=== PATIENT | male | born 1955 | race Caucasian/White ===

== ENCOUNTER 2018-05-17 09:01 | Emergency (ER) | payer OTHER, BC ==
[~2018-05-17] VITALS: Ht 177.8 cm; Wt 95.2 kg
[~2018-05-17 09:01] MED LIST: CEFA250SU PO; HYDMOR2 PO; Keflex500 MG PO; Vibramycin100 MG PO; WARF2.5 PO; WARF3 PO
[2018-05-17] MEDS ORDERED: NORT25 PO (09:52)
[2018-05-17] MEDS ORDERED: XARELTO10 MG PO (09:53)
[2018-05-17] MEDS ORDERED: MELO7.5 PO (09:53)
[2018-05-17] MEDS ORDERED: CYCL10 PO (09:54)
== END 2018-05-17 11:20 | disposition home or self-care (01) ==
LOC: ER 09:01
DX: S61.317A Laceration without foreign body of left little finger with damage to nail, initial encounter (principal); Z79.899 Other long term (current) drug therapy; I10 Essential (primary) hypertension; F17.200 Nicotine dependence, unspecified, uncomplicated; W22.8XXA Striking against or struck by other objects, initial encounter
CPT/HCPCS: 73130; 99283-25

== ENCOUNTER 2018-05-27 10:37 | Day surgery (SDC) | payer BC ==
[~2018-05-27 10:37] MED LIST changes: +CYCL10 PO; +MELO7.5 PO; +NORT25 PO; +XARELTO10 MG PO
== END 2018-05-27 23:02 | disposition home or self-care (01) ==
LOC: RAD 10:37 → MRI 12:00 → RAD 23:02
DX: M75.121 Complete rotator cuff tear or rupture of right shoulder, not specified as traumatic (principal); M19.011 Primary osteoarthritis, right shoulder
CPT/HCPCS: 20610; 73222; 77002; A9577; Q9967

== ENCOUNTER 2018-07-23 09:05 | Emergency (ER) | payer BC ==
[~2018-07-23] VITALS: Ht 177.8 cm; Wt 95.2 kg
[2018-07-23 09:53] LABS: BASOPHILS ABSOLUTE AUTO 0.05 K/mm3 (0.00-0.23); BASOPHILS PERCENT AUTO 1 % (0-2); EOSINOPHILS PERCENT AUTO 2 % (0-6); Hematocrit 45.6 % (37.0-53.0); Hemoglobin 14.8 g/dL (13.5-17.5); IMMATURE GRAN ABSOLUTE AUTO 0.01 K/mm3 (0.00-0.10); IMMATURE GRAN PERCENT AUTO 0 % (0-1); LYMPHOCYTES ABSOLUTE AUTO 1.18 K/mm3 (0.84-5.20); LYMPHOCYTES PERCENT AUTO 20 % (21-46); MONOCYTES ABSOLUTE AUTO 0.53 K/mm3 (0.16-1.47); MONOCYTES PERCENT AUTO 9 % (4-13); Mean Corpuscular HGB 31.6 pg (26.0-34.0); Mean Corpuscular HGB Conc 32.5 g/dL (31.5-36.5); Mean Corpuscular Volume 97 fL (80-100); Mean Platelet Volume 9.2 fL (9.1-12.4); NEUTROPHILS PERCENT AUTO 69 % (41-73); Platelet Count 256 K/mm3 (150-400); RDW Coefficient Variation 12.8 % (11.7-14.2); RDW Standard Deviation 45.8 fL (35.1-46.3); Red Blood Cell Count 4.68 M/mm3 (4.30-5.90); White Blood Cell Count 5.97 K/mm3 (4.00-11.30)
[2018-07-23 10:15] LABS: Alanine Aminotransfer (ALT/SGP 32 U/L (12-78); Albumin, Blood 3.8 g/dL (3.4-5.0); Albumin/Globulin Ratio 1.3 (0.8-1.8); Alk Phos 74 U/L (50-136); Anion Gap 5 mmol/L (6-16); Aspartate Aminotrans (AST/SGOT 17 U/L (12-37); Bilirubin, Total 0.8 mg/dL (0.1-1.0); Blood Urea Nitrogen 13 mg/dL (8-24); Bun/Creatinine Ratio 17.1 (12.0-20.0); CO2, Blood 25 mmol/L (21-32); Chloride, Blood 112 mmol/L (98-108); Creatinine, Blood 0.76 mg/dL (0.60-1.20); Globulin, Blood 2.9 g/dL (2.2-4.0); Glomerular Filtration Rate >60 (60-); Glucose, Blood 100 mg/dL (70-99); Potassium, Blood 3.7 mmol/L (3.5-5.5); Sodium, Blood 142 mmol/L (136-145); Total Protein, Blood 6.7 g/dL (6.4-8.2); Troponin I 0.025 ng/mL (0.000-0.040)
[2018-07-23] MEDS ORDERED: Lasix20 MG PO (14:17)
== END 2018-07-23 15:27 | disposition home or self-care (01) ==
LOC: ER 09:05
PROVIDERS: Physician Assistant
DX: I11.0 Hypertensive heart disease with heart failure (principal); I50.9 Heart failure, unspecified; Z79.899 Other long term (current) drug therapy; F17.200 Nicotine dependence, unspecified, uncomplicated
CPT/HCPCS: 36415; 71260; 80053; 83880; 84484; 85025; 93005; 93010; 99284-25; Q9967

== ENCOUNTER 2018-08-06 14:19 | Emergency (ER) | payer BC ==
[~2018-08-06] VITALS: Ht 177.8 cm; Wt 95.2 kg
[~2018-08-06 14:19] MED LIST changes: +Lasix20 MG PO
[2018-08-06 15:29] LABS: BASOPHILS ABSOLUTE AUTO 0.06 K/mm3 (0.00-0.23); BASOPHILS PERCENT AUTO 1 % (0-2); EOSINOPHILS ABSOLUTE AUTO 0.11 K/mm3 (0.00-0.68); EOSINOPHILS PERCENT AUTO 2 % (0-6); Hematocrit 44.4 % (37.0-53.0); Hemoglobin 14.3 g/dL (13.5-17.5); IMMATURE GRAN ABSOLUTE AUTO 0.03 K/mm3 (0.00-0.10); IMMATURE GRAN PERCENT AUTO 1 % (0-1); LYMPHOCYTES ABSOLUTE AUTO 1.26 K/mm3 (0.84-5.20); LYMPHOCYTES PERCENT AUTO 20 % (21-46); MONOCYTES ABSOLUTE AUTO 0.38 K/mm3 (0.16-1.47); MONOCYTES PERCENT AUTO 6 % (4-13); Mean Corpuscular HGB 31.5 pg (26.0-34.0); Mean Corpuscular HGB Conc 32.2 g/dL (31.5-36.5); Mean Corpuscular Volume 98 fL (80-100); Mean Platelet Volume 9.3 fL (9.1-12.4); NEUTROPHILS ABSOLUTE AUTO 4.52 K/mm3 (1.96-9.15); NEUTROPHILS PERCENT AUTO 71 % (41-73); Platelet Count 265 K/mm3 (150-400); RDW Coefficient Variation 12.7 % (11.7-14.2); RDW Standard Deviation 45.6 fL (35.1-46.3); Red Blood Cell Count 4.54 M/mm3 (4.30-5.90); White Blood Cell Count 6.36 K/mm3 (4.00-11.30)
[2018-08-06 15:46] LABS: Alanine Aminotransfer (ALT/SGP 37 U/L (12-78); Albumin, Blood 3.5 g/dL (3.4-5.0); Albumin/Globulin Ratio 1.1 (0.8-1.8); Alk Phos 76 U/L (50-136); Anion Gap 5 mmol/L (6-16); Aspartate Aminotrans (AST/SGOT 16 U/L (12-37); Bilirubin, Total 0.5 mg/dL (0.1-1.0); Blood Urea Nitrogen 19 mg/dL (8-24); Bun/Creatinine Ratio 21.9 (12.0-20.0); CO2, Blood 24 mmol/L (21-32); Calcium, Blood 8.7 mg/dL (8.5-10.1); Chloride, Blood 112 mmol/L (98-108); Creatinine, Blood 0.87 mg/dL (0.60-1.20); Globulin, Blood 3.1 g/dL (2.2-4.0); Glomerular Filtration Rate >60 (60-); Glucose, Blood 129 mg/dL (70-99); Sodium, Blood 141 mmol/L (136-145); Total Protein, Blood 6.6 g/dL (6.4-8.2); Troponin I 0.024 ng/mL (0.000-0.040)
[2018-08-06] MEDS ORDERED: Toprol Xl25 MG PO (17:01)
== END 2018-08-06 17:18 | disposition home or self-care (01) ==
LOC: ER 14:19
PROVIDERS: Physician Assistant
DX: I11.0 Hypertensive heart disease with heart failure (principal); I50.9 Heart failure, unspecified; Z79.899 Other long term (current) drug therapy; F17.200 Nicotine dependence, unspecified, uncomplicated
CPT/HCPCS: 36415; 71046; 80053; 83880; 84484; 85025; 93005; 93010; 96374; 99284-25; J1940

== ENCOUNTER 2018-08-22 09:28 | Day surgery (SDC) | payer BC ==
[~2018-08-22] VITALS: Ht 175.3 cm; Wt 94.0 kg
[~2018-08-22 09:28] MED LIST changes: +ACET325 PO; +FOLGARD TABLET1 EACH PO; +Toprol Xl25 MG PO
[2018-08-22] MEDS ORDERED: METO25ER PO (10:00)
[2018-08-22] MEDS ORDERED: Vitamin D2000 UNIT PO (10:02)
--- NOTE | 2018-08-22 10:57 | NUR ---
20 G ANGIOJET IV STARTED IN RIGHT AC USING STERILE TECHNIQUE; IV SECURED WITH TEGADERM DRESSING. IV WAS FLUSHED WITH 10 CC NS.
--- NOTE | 2018-08-22 12:45 | NUR ---
PT ARRIVED BACK TO RECOVERY ROOM IN RECLINER WITH RIGHT RADIAL TR BAND IN PLACE WITH WRIST BOARD; ALSO, WRIST BOARD AND DRESSING OVER RIGHT AC VENOUS SITE. BOTH SITES SOFT NON-TENDER WITH NO HEMATOMA NO PULSATILE BLEEDING RIGHT RADIAL SITE. PT DENIES PAIN. PT EATING LUNCH WITH CALL LIGHT IN REACH AND IN THE ROOM.
--- NOTE | 2018-08-22 12:51 | NUR ---
DR SANDRA IN ROOM TO SEE PT AND .
[2018-08-22] MEDS ORDERED: Lisinopril2.5 MG PO (13:21)
--- NOTE | 2018-08-22 14:17 | NUR ---
DISCHARGE INSTRUCTIONS REVIEWED ALL QUESTIONS ANSWERED.
--- NOTE | 2018-08-22 14:30 | NUR ---
11 CC OF AIR REMOVED OVER 20 MIN OUT OF NOW DEFLATED RIGHT TR BAND. NO HEMATOMA, NO PULSATILE BLEEDING.
--- NOTE | 2018-08-22 14:43 | NUR ---
RIGHT AC VENOUS SITE SOFT NON-TENDER WITH NO HEMATOMA, NO BLEEDING AND INTACT DRESSING STILL.
--- NOTE | 2018-08-22 14:43 | NUR ---
NO CHANGES TO DEFLATED RIGHT TR BAND SITE.
== END 2018-08-22 15:15 | disposition home or self-care (01) ==
LOC: MHTC 09:28
DX: I25.10 Atherosclerotic heart disease of native coronary artery without angina pectoris (principal); I27.22 Pulmonary hypertension due to left heart disease; I50.40 Unspecified combined systolic (congestive) and diastolic (congestive) heart failure; I42.0 Dilated cardiomyopathy; M19.90 Unspecified osteoarthritis, unspecified site; I08.1 Rheumatic disorders of both mitral and tricuspid valves; I45.10 Unspecified right bundle-branch block; I87.2 Venous insufficiency (chronic) (peripheral); Z87.891 Personal history of nicotine dependence; Z79.899 Other long term (current) drug therapy
CPT/HCPCS: 93460; 99152; 99153; C1769; C1894; J1644; J2250; J3010; J7030; Q9967

== ENCOUNTER 2019-03-17 08:59 | Day surgery (SDC) | payer BC ==
[~2019-03-17] VITALS: Ht 177.8 cm; Wt 85.9 kg
[~2019-03-17 08:59] MED LIST changes: +Lisinopril2.5 MG PO; +METO25ER PO; +Vitamin D2000 UNIT PO
[2019-03-17] MEDS ORDERED: Lisinopril2.5 MG PO (09:54)
[2019-03-17] MEDS ORDERED: FURO40 PO (09:54)
[2019-03-17] MEDS ORDERED: Nortriptyline H50 MG PO (09:55)
[2019-03-17] MEDS ORDERED: METO25 (09:55)
[2019-03-17] MEDS ORDERED: XARELTO20 MG PO (09:55)
--- NOTE | 2019-03-17 10:16 | NUR ---
03/17/19 RADAMES DEUTSCH History, Chart, Medications and Allergies reviewed before start of procedure.3-LEAD EKG REVIEWED WITH PHYSICIAN PRIOR TO START OF PROCEDURE.O2 VIA N/C INTACT THROUGHOUT SEDATION/PROCEDURE. MONITOR INTACT WITH CONTINUOUS PULSE OXIMETRY AND INTERMITTENT BP.PATIENT DETERMINED TO BE ASA APPROPRIATE FOR PROPOFOL SEDATION PRIOR TO START OF PROCEDURE BY .
--- NOTE | 2019-03-17 10:49 | NUR ---
NO PAIN INDICATED.
--- NOTE | 2019-03-17 11:02 | NUR ---
Discharge instructions reviewed with patient. Patient verbalizes understanding. Copy given to patient to take home. Patient States Post-Procedure ride home has been arranged WITH . GAIT STEADY AND VITAL SIGNS STABLE, TOLERATING FLUIDS WELL.
== END 2019-03-17 11:10 | disposition home or self-care (01) ==
LOC: ORSCMMR 08:59 → ORD 10:00 → ORSCMMR 10:00
PROVIDERS: Internal Medicine Gastroenterology
PROC: 0DBM8ZX Excision of Descending Colon, Via Natural or Artificial Opening Endoscopic, Diagnostic (ICD-10-PCS; principal; 2019-03-17 10:00)
PROC: 0DBN8ZX Excision of Sigmoid Colon, Via Natural or Artificial Opening Endoscopic, Diagnostic (ICD-10-PCS; principal; 2019-03-17 10:00)
DX: R19.5 Other fecal abnormalities (principal); D12.4 Benign neoplasm of descending colon; D12.5 Benign neoplasm of sigmoid colon; K57.30 Diverticulosis of large intestine without perforation or abscess without bleeding; Z86.718 Personal history of other venous thrombosis and embolism; I50.9 Heart failure, unspecified; F17.210 Nicotine dependence, cigarettes, uncomplicated; Z79.01 Long term (current) use of anticoagulants; Z79.899 Other long term (current) drug therapy
CPT/HCPCS: 88305; J2250; J3010; J7120

== ENCOUNTER 2019-05-06 21:30 | Observation (INO) | payer BC ==
[~2019-05-06] VITALS: Ht 177.8 cm; Wt 88.5 kg
[~2019-05-06 21:30] MED LIST changes: +FURO40 PO; +METO25; +Nortriptyline H50 MG PO; +XARELTO20 MG PO
[2019-05-06 22:10] LABS: BASOPHILS ABSOLUTE AUTO 0.06 K/mm3 (0.00-0.23); BASOPHILS PERCENT AUTO 1 % (0-2); EOSINOPHILS ABSOLUTE AUTO 0.05 K/mm3 (0.00-0.68); EOSINOPHILS PERCENT AUTO 1 % (0-6); Hematocrit 45.7 % (37.0-53.0); Hemoglobin 15.3 g/dL (13.5-17.5); IMMATURE GRAN ABSOLUTE AUTO 0.07 K/mm3 (0.00-0.10); IMMATURE GRAN PERCENT AUTO 1 % (0-1); LYMPHOCYTES ABSOLUTE AUTO 0.99 K/mm3 (0.84-5.20); LYMPHOCYTES PERCENT AUTO 11 % (21-46); MONOCYTES ABSOLUTE AUTO 0.71 K/mm3 (0.16-1.47); MONOCYTES PERCENT AUTO 8 % (4-13); Mean Corpuscular HGB Conc 33.5 g/dL (31.5-36.5); Mean Corpuscular Volume 99 fL (80-100); Mean Platelet Volume 8.5 fL (9.1-12.4); NEUTROPHILS ABSOLUTE AUTO 7.36 K/mm3 (1.96-9.15); NEUTROPHILS PERCENT AUTO 80 % (41-73); Platelet Count 334 K/mm3 (150-400); RDW Coefficient Variation 13.1 % (11.7-14.2); RDW Standard Deviation 47.7 fL (35.1-46.3); Red Blood Cell Count 4.63 M/mm3 (4.30-5.90); White Blood Cell Count 9.24 K/mm3 (4.00-11.30)
[2019-05-06 22:34] LABS: Alanine Aminotransfer (ALT/SGP 36 U/L (12-78); Albumin, Blood 4.4 g/dL (3.4-5.0); Albumin/Globulin Ratio 1.5 (0.8-1.8); Alk Phos 77 U/L (50-136); Anion Gap 8 mmol/L (6-16); Aspartate Aminotrans (AST/SGOT 15 U/L (12-37); Bilirubin, Total 0.8 mg/dL (0.1-1.0); Blood Urea Nitrogen 22 mg/dL (8-24); Bun/Creatinine Ratio 13.1 (12.0-20.0); CO2, Blood 25 mmol/L (21-32); Calcium, Blood 9.5 mg/dL (8.5-10.1); Chloride, Blood 108 mmol/L (98-108); Creatinine, Blood 1.68 mg/dL (0.60-1.20); Glomerular Filtration Rate 44 (60-); Glucose, Blood 96 mg/dL (70-99); Potassium, Blood 4.1 mmol/L (3.5-5.5); Sodium, Blood 141 mmol/L (136-145); Total Protein, Blood 7.4 g/dL (6.4-8.2)
[2019-05-06] MEDS ORDERED: Lasix20 MG PO (23:02)
[2019-05-07 00:38] LABS: Troponin I <0.015 ng/mL (0.000-0.040)
[2019-05-07 06:36] LABS: Anion Gap 6 mmol/L (6-16); Blood Urea Nitrogen 23 mg/dL (8-24); Bun/Creatinine Ratio 20.2 (12.0-20.0); CO2, Blood 25 mmol/L (21-32); Calcium, Blood 8.9 mg/dL (8.5-10.1); Chloride, Blood 109 mmol/L (98-108); Creatinine, Blood 1.14 mg/dL (0.60-1.20); Glomerular Filtration Rate >60 (60-); Glucose, Blood 95 mg/dL (70-99); Potassium, Blood 3.7 mmol/L (3.5-5.5); Sodium, Blood 140 mmol/L (136-145)
[2019-05-07] MEDS ORDERED: PRINIVIL10 MG PO (11:53)
[2019-05-07] MEDS ORDERED: XARELTO15 MG PO (11:54)
--- NOTE | 2019-05-07 15:13 | NUR ---
echocardiogram completed
== END 2019-05-07 17:00 | disposition other institution (70) ==
LOC: ER 21:30 → ERHOLD 21:31
PROVIDERS: Emergency Medicine; ADMIT Internal Medicine
DX: E86.0 Dehydration (principal); I95.1 Orthostatic hypotension; I87.2 Venous insufficiency (chronic) (peripheral); I11.0 Hypertensive heart disease with heart failure; I50.22 Chronic systolic (congestive) heart failure; I45.10 Unspecified right bundle-branch block; N17.9 Acute kidney failure, unspecified; Z72.89 Other problems related to lifestyle; Z79.01 Long term (current) use of anticoagulants; Z79.899 Other long term (current) drug therapy; Z86.718 Personal history of other venous thrombosis and embolism; Z87.891 Personal history of nicotine dependence
CPT/HCPCS: 36415; 71046; 80048; 80053; 84484; 85025; 93005; 93010; 93308; 93321; 96360; 96361; 99285-25; G0378; J7030

== ENCOUNTER 2019-12-23 20:46 | Emergency (ER) | payer BC ==
[~2019-12-23] VITALS: Ht 172.7 cm; Wt 88.5 kg
[~2019-12-23 20:46] MED LIST changes: +PRINIVIL10 MG PO; +XARELTO15 MG PO
== END 2019-12-23 23:38 | disposition home or self-care (01) ==
LOC: ER 20:46
DX: S40.011A Contusion of right shoulder, initial encounter (principal); S40.021A Contusion of right upper arm, initial encounter; I10 Essential (primary) hypertension; F17.210 Nicotine dependence, cigarettes, uncomplicated; Z79.01 Long term (current) use of anticoagulants; Z86.718 Personal history of other venous thrombosis and embolism; Z79.899 Other long term (current) drug therapy; W01.0XXA Fall on same level from slipping, tripping and stumbling without subsequent striking against object, initial encounter
CPT/HCPCS: 73030; 99283-25

== ENCOUNTER → 2020-01-27 | Outpatient (CLI) | payer BC | END | disposition home or self-care (01) | LOC: LAB 18:00 → LAB SHORT 18:00 | DX: L02.91 Cutaneous abscess, unspecified (principal) | CPT/HCPCS: 87070; 87075; 87077; 87186; 87205 ==

== ENCOUNTER 2021-08-29 11:26 | Inpatient (IN) | payer MEDICARE ==
[~2021-08-29] VITALS: Ht 180.3 cm; Wt 90.7 kg
[2021-08-29 12:28] LABS: BASOPHILS ABSOLUTE AUTO 0.04 K/mm3 (0.00-0.23); BASOPHILS PERCENT AUTO 0 % (0-2); EOSINOPHILS ABSOLUTE AUTO 0.01 K/mm3 (0.00-0.68); EOSINOPHILS PERCENT AUTO 0 % (0-6); Hematocrit 46.2 % (37.0-53.0); Hemoglobin 15.7 g/dL (13.5-17.5); IMMATURE GRAN ABSOLUTE AUTO 0.17 K/mm3 (0.00-0.10); IMMATURE GRAN PERCENT AUTO 1 % (0-1); LYMPHOCYTES ABSOLUTE AUTO 1.11 K/mm3 (0.84-5.20); LYMPHOCYTES PERCENT AUTO 6 % (21-46); MONOCYTES ABSOLUTE AUTO 1.57 K/mm3 (0.16-1.47); MONOCYTES PERCENT AUTO 9 % (4-13); Mean Corpuscular HGB 32.4 pg (26.0-34.0); Mean Corpuscular Volume 95 fL (80-100); Mean Platelet Volume 9.1 fL (9.1-12.4); NEUTROPHILS ABSOLUTE AUTO 15.63 K/mm3 (1.96-9.15); NEUTROPHILS PERCENT AUTO 84 % (41-73); Platelet Count 305 K/mm3 (150-400); RDW Coefficient Variation 12.9 % (11.7-14.2); RDW Standard Deviation 45.8 fL (35.1-46.3); Red Blood Cell Count 4.85 M/mm3 (4.30-5.90); White Blood Cell Count 18.53 K/mm3 (4.00-11.30)
[2021-08-29 12:48] LABS: Albumin, Blood 3.3 g/dL (3.4-5.0); Albumin/Globulin Ratio 0.8 (0.8-1.8); Bilirubin, Total 1.4 mg/dL (0.1-1.0); Bun/Creatinine Ratio 13.8 (12.0-20.0); Calcium, Blood 9.9 mg/dL (8.5-10.1); Creatinine, Blood 0.8 mg/dL (0.60-1.20); Globulin, Blood 4.4 g/dL (2.2-4.0); Potassium, Blood 3.5 mmol/L (3.5-5.5); Total Protein, Blood 7.7 g/dL (6.4-8.2)
[2021-08-29] MEDS ORDERED: METOPROLOL SUCC25 MG PO (15:05)
[2021-08-29 16:04] LABS: Source, Urine Clean Catch
[2021-08-29 16:16] LABS: Appearance, Urine Clear (Clear); Bilirubin, Urine Neg (Neg); Blood, Urine 2+ (Neg); Color, Urine Amber (P-Yellow); Glucose Qualitative, Urine Neg (Neg); Ketones, Urine Neg (Neg); Leukocyte Esterase, Urine Neg (Neg); Nitrite, Urine Neg (Neg); Protein, Urine 2+ (Neg); Urobilinogen, Urine 1+ (Normal); pH, Urine 6.5 (5.0-8.0)
[2021-08-29 16:40] LABS: Bacteria Few /hpf; Hyaline Casts 0-2 /lpf (0-2); Squamous Epithelial Cells Rare /hpf (Few); White Blood Cells, Urine 0-2 /hpf (0-5)
--- NOTE | 2021-08-29 21:50 | NUR ---
PATIENT TO THE FLOOR VIA PHYLLIS, AOX4, VSS, JIMMY TO RUQ, PATENT DRAINING SEROSANGUINOUS FLUID. EMPTIED OUT 90MLS. REINFORCED DRAIN WITH GAUZE. PICCO ON ABD WITH SLIGHT SHADOWING. CALL LIGHT IN REACH ORIENTED TO CALL LIGHT WILL CONTINUE TO MONITOR.
--- NOTE | 2021-08-30 02:06 | NUR ---
AGREE WITH EDUCATION SITE MANAGER SHIFT ASSESSMENT DOCUMENTATION.
--- NOTE | 2021-08-30 04:19 | NUR ---
SHIFT SUMMARY PT NEW POST OP ADMIT THIS SHIFT. COMES TO THE FLOOR FROM ICU RECOVERY AT 2100. POST OPEN CALLIE, PICCO DRAIN W/ SCANT SHADOWING ON THE LUQ, JIMMY DRAIN ON LUQ, DRAINING SEROSANGUINOUS FLUID APROXIMATELY 110MLS OUTPUT THIS SHIFT. PT COMPLAINS OF 9/10 PAIN AND MEDICATED PER EMAR. FLUIDS RUNNING AT 125/HR IN R AC. ZOSYN RUNNING AT 3.7/HR PER EMAR IN L FOREARM. PT ATTEMPTED TO VOID UNSUCCESSFUL, BLADDER SCAN OF 197MLS @ 0340. UPON AMBULATION PT COMPLAIN OF SOB, NECK AND ABD PAIN. PT DIAPHORETIC AND PALE, BACK TO BED AND VITALS ASSESSED. NOTIFIED SURGEON TELE ORDERED AND HOSPITALIST CONSULTED. VSS, WILL CONTINUE TO MONTIOR FOR CHANGES.
[2021-08-30 04:39] LABS: BASOPHILS ABSOLUTE AUTO 0.06 K/mm3 (0.00-0.23); BASOPHILS PERCENT AUTO 0 % (0-2); EOSINOPHILS ABSOLUTE AUTO 0.05 K/mm3 (0.00-0.68); EOSINOPHILS PERCENT AUTO 0 % (0-6); Hematocrit 32.6 % (37.0-53.0); Hemoglobin 10.9 g/dL (13.5-17.5); IMMATURE GRAN ABSOLUTE AUTO 0.47 K/mm3 (0.00-0.10); IMMATURE GRAN PERCENT AUTO 3 % (0-1); LYMPHOCYTES ABSOLUTE AUTO 0.65 K/mm3 (0.84-5.20); LYMPHOCYTES PERCENT AUTO 4 % (21-46); MONOCYTES ABSOLUTE AUTO 1.08 K/mm3 (0.16-1.47); MONOCYTES PERCENT AUTO 6 % (4-13); Mean Corpuscular HGB 33.1 pg (26.0-34.0); Mean Corpuscular HGB Conc 33.4 g/dL (31.5-36.5); Mean Corpuscular Volume 99 fL (80-100); Mean Platelet Volume 9.4 fL (9.1-12.4); NEUTROPHILS ABSOLUTE AUTO 16.08 K/mm3 (1.96-9.15); NEUTROPHILS PERCENT AUTO 87 % (41-73); Platelet Count 325 K/mm3 (150-400); RDW Coefficient Variation 12.9 % (11.7-14.2); RDW Standard Deviation 46.7 fL (35.1-46.3); Red Blood Cell Count 3.29 M/mm3 (4.30-5.90); White Blood Cell Count 18.39 K/mm3 (4.00-11.30)
[2021-08-30 05:03] LABS: Albumin, Blood 2.6 g/dL (3.4-5.0); Albumin/Globulin Ratio 0.8 (0.8-1.8); Bilirubin, Total 0.9 mg/dL (0.1-1.0); Bun/Creatinine Ratio 17.6 (12.0-20.0); Calcium, Blood 8.3 mg/dL (8.5-10.1); Creatinine, Blood 1.08 mg/dL (0.60-1.20); Globulin, Blood 3.3 g/dL (2.2-4.0); Potassium, Blood 4.1 mmol/L (3.5-5.5); Total Protein, Blood 5.9 g/dL (6.4-8.2)
--- NOTE | 2021-08-30 06:07 | NUR ---
TELE CALLED TO NOTIFY THIS RN OF HR IN THE 130S. PT ASYMPTOMATIC AT THIS TIME AND REMAINS IN SINUS TACH. GIVING DAILY METOPROLOL DOSE EARLY AND WILL CONT TO MONITOR. PER DR. CALIX--NOTIFY MD IF PT CONVERTS BACK INTO AFIB.
--- NOTE | 2021-08-30 15:59 | NUR ---
SHIFT SUMMARY: POD1 CHOLECYSTECTOMY. A&Ox4. VSS. AMBULATES W/ OPA, GB & FWW. TOLERATING CLEAR LIQUID DIET. PAIN CONTROLLED WITH TORODOL AND NORCO. TASIA DRESSING W/ GAUZE AND KRIS DRAIN RUQ. ABD BINDER. ENCOURAGED T/C/DB, USE I/S AND SPLINTED BREATHING. TELE @ 2349 SINUS TACH/111bpm. WORKED WITH PT AND OT TODAY; UP TO CHAIR AND WALKING HALLWAY. MRCP TOMORROW; NPO 4H PROPR TO APPT.
--- NOTE | 2021-08-31 04:55 | NUR ---
SHIFT SUMMARY A/O X4. POD2 CHOLECYSTECTOMY, TASIA DRESSING IN PLACE IN RUQ, SCANT AMOUNT OF DRIED DRAINAGE. BOWEL TONES ACTIVE IN ALL 4 QUADRANTS. PT REPORTS NO FLATUS AT THIS TIME, AND HAS NOT PASSED ANY STOOL. TOLERATED CLEAR LIQUID DIET, HAS BEEN NPO SINCE MIDNIGHT FOR MRCP TODAY. PT REPORTS NAUSEA THIS AM, BUT WAS GIVEN ZOFRAN AND DID NOT VOMIT. VOIDING WELL. PAIN MANAGED W/ PO PAIN MEDICATIONS. VITAL SIGNS STABLE. AMBULATING WELL. WILL CONTINUE TO MONITOR AND REPORT TO ONCOMING RN.
[2021-08-31 05:18] LABS: BASOPHILS ABSOLUTE AUTO 0.02 K/mm3 (0.00-0.23); BASOPHILS PERCENT AUTO 0 % (0-2); EOSINOPHILS ABSOLUTE AUTO 0.01 K/mm3 (0.00-0.68); EOSINOPHILS PERCENT AUTO 0 % (0-6); Hematocrit 24.5 % (37.0-53.0); Hemoglobin 8.2 g/dL (13.5-17.5); IMMATURE GRAN ABSOLUTE AUTO 0.23 K/mm3 (0.00-0.10); IMMATURE GRAN PERCENT AUTO 2 % (0-1); LYMPHOCYTES ABSOLUTE AUTO 1.08 K/mm3 (0.84-5.20); LYMPHOCYTES PERCENT AUTO 7 % (21-46); MONOCYTES PERCENT AUTO 9 % (4-13); Mean Corpuscular HGB 32.4 pg (26.0-34.0); Mean Corpuscular HGB Conc 33.5 g/dL (31.5-36.5); Mean Corpuscular Volume 97 fL (80-100); Mean Platelet Volume 9.7 fL (9.1-12.4); NEUTROPHILS ABSOLUTE AUTO 12.44 K/mm3 (1.96-9.15); NEUTROPHILS PERCENT AUTO 83 % (41-73); Platelet Count 317 K/mm3 (150-400); RDW Coefficient Variation 12.7 % (11.7-14.2); Red Blood Cell Count 2.53 M/mm3 (4.30-5.90); White Blood Cell Count 15.08 K/mm3 (4.00-11.30)
[2021-08-31 05:50] LABS: Albumin, Blood 2.6 g/dL (3.4-5.0); Albumin/Globulin Ratio 0.8 (0.8-1.8); Bilirubin, Total 0.6 mg/dL (0.1-1.0); Bun/Creatinine Ratio 23.8 (12.0-20.0); Calcium, Blood 8.4 mg/dL (8.5-10.1); Creatinine, Blood 0.88 mg/dL (0.60-1.20); Globulin, Blood 3.4 g/dL (2.2-4.0); Potassium, Blood 3.9 mmol/L (3.5-5.5)
--- NOTE | 2021-08-31 11:45 | NUR ---
TO IMAGING VIA WC, WILL RESUME CLEAR LQ's UPON ARRIVAL.
[2021-08-31 12:05] LABS: Hemoglobin 8.1 g/dL (13.5-17.5)
--- NOTE | 2021-08-31 19:12 | NUR ---
SHIFT SUMMARY TOLERATING DIET BEING ADVANCED TO FULL LQ's. AMBULATED IN HALLWAYS x 2 & SAT UP IN CHAIR T/O SHIFT. JIMMY PUTTING OUT VERY THICK GELATENOUS OUTPUT THAT REQUIRED END OF LONG Q-TIP TO GET OUT. PAIN WELL CONTROLLED w/ PO. PLEASANT & COOPERATIVE. AWAITING POSS BED AT [facility].
[2021-09-01 05:05] LABS: BASOPHILS ABSOLUTE AUTO 0.02 K/mm3 (0.00-0.23); BASOPHILS PERCENT AUTO 0 % (0-2); EOSINOPHILS ABSOLUTE AUTO 0.06 K/mm3 (0.00-0.68); EOSINOPHILS PERCENT AUTO 1 % (0-6); Hematocrit 22.5 % (37.0-53.0); Hemoglobin 7.5 g/dL (13.5-17.5); IMMATURE GRAN ABSOLUTE AUTO 0.22 K/mm3 (0.00-0.10); IMMATURE GRAN PERCENT AUTO 3 % (0-1); LYMPHOCYTES ABSOLUTE AUTO 1.65 K/mm3 (0.84-5.20); LYMPHOCYTES PERCENT AUTO 18 % (21-46); MONOCYTES ABSOLUTE AUTO 0.92 K/mm3 (0.16-1.47); MONOCYTES PERCENT AUTO 10 % (4-13); Mean Corpuscular HGB 32.3 pg (26.0-34.0); Mean Corpuscular HGB Conc 33.3 g/dL (31.5-36.5); Mean Corpuscular Volume 97 fL (80-100); Mean Platelet Volume 9.3 fL (9.1-12.4); NEUTROPHILS PERCENT AUTO 68 % (41-73); Platelet Count 337 K/mm3 (150-400); RDW Coefficient Variation 12.7 % (11.7-14.2); RDW Standard Deviation 44.6 fL (35.1-46.3); Red Blood Cell Count 2.32 M/mm3 (4.30-5.90); White Blood Cell Count 8.97 K/mm3 (4.00-11.30)
[2021-09-01 05:31] LABS: Albumin, Blood 2.6 g/dL (3.4-5.0); Albumin/Globulin Ratio 0.7 (0.8-1.8); Bilirubin, Total 0.6 mg/dL (0.1-1.0); Bun/Creatinine Ratio 17.8 (12.0-20.0); Calcium, Blood 8.1 mg/dL (8.5-10.1); Creatinine, Blood 0.73 mg/dL (0.60-1.20); Globulin, Blood 3.6 g/dL (2.2-4.0); Potassium, Blood 3.3 mmol/L (3.5-5.5); Total Protein, Blood 6.2 g/dL (6.4-8.2)
--- NOTE | 2021-09-01 06:28 | NUR ---
ESTATE AGENT SUMMARY PT A&O X4 AND COOPERATIVE. PT REPORTED 5/10 ABD PN IN THE LUQ. DRESSING OVER ABD INCISION IS C/D/I WITH SMALL AMOUNTS OF SS FLUID IN JIMMY DRAIN. PT'S HEART RATE JOSE FRANCISCO TO 140S TO 160S WHILE AMBULATING IN THE HALLWAY OR WALKING TO THE BATHROOM BUT RETUURNED TO BAELINE AT REST. PT MAINTAINING SA02 OF 90% AT AM VITALS. HE WAS PUT ON 2L O2 AND HIS SA02 JOSE FRANCISCO TO 93%. NO OTHER ACUTE CHANGES THIS SHIFT.
--- NOTE | 2021-09-01 07:39 | NUR ---
ASSUMED CARE: PT IS A&OX4 AND AWAKE UP IN CHAIR AT TIME OF BEDSIDE REPORT. VSS W/ O2 RUNNING AT 2 LPM VIA NC. CALL LIGHT WITHIN REACH, NO ACUTE NEEDS/DISTRESS AT THIS TIME.
--- NOTE | 2021-09-01 08:20 | NUR ---
THIS RN WENT INTO ROOM TO ASSESS PT AND PT STATED HE WAS MORE TENDER ON RIGHT SIDE THAN LEFT BUT PAIN MEDS WERE HELPING. ABDOMEN IS FIRM. DR MARCUS EVALUATED PT AND FOUND THAT HE WAS VERY TENDER TO RIGHT SIDE EVEN WITH MINIMAL PRESSURE. CT ORDERED.
--- NOTE | 2021-09-01 09:06 | NUR ---
PT TAKEN TO CT AT THIS TIME.
--- NOTE | 2021-09-01 09:19 | NUR ---
PT RETURNED FROM CT BY WHEELCHAIR, TRANSFERRED TO RECLINER, PT MAINTAINING O2 SATS >95% ON ROOM AIR, WILL KEEP SUPPLEMENTAL O2 OFF AT THIS TIME.
--- NOTE | 2021-09-01 10:30 | NUR ---
REVIEWED RELAY ASSEMBLER'S DOCUMENTATION ON HEAD TO TOE ASSESSMENT. AGREE WITH ALL EXCEPT DRAINAGE FROM KRIS DRAIN APPEARS TO BE MORE BLOOD THAN SEROSANGUINOUS. DR SHARP
--- NOTE | 2021-09-01 10:58 | NUR ---
CALL TO DR MARCUS TO REVIEW CT SCAN RESULTS. SMALL AMOUNT OF BLEEDING AND ILEUS NOTED. NO NEW ORDERS EXCEPT TO ENCOURAGE AMBULATION.
--- NOTE | 2021-09-01 17:38 | NUR ---
SHIFT SUMMARY: PT HAS BEEN A&OX4 THROUGHOUT SHIFT AND PAIN IS CONTROLLED W/ MEDS PER JUN. PT HAS SUSTAINED >93% O2 ON RA AND NSR IN 'S. TASIA DRESSING C/D/I W/ SMALL SANGUINOUS LEAKING FROM JIMMY DRAIN INSERTION SITE. JIMMY DRAIN BULB COMPRESSED AND INTACT, NO LEAKING FROM DISTAL TUBING, ABD BINDER IN PLACE. PT RECEIVED 1 UNIT PRBC AND TOLERATED PROCEDURE WELL W/ NO REACTION TO BLOOD PRODUCTS. CT STUDY SHOWED ILEUS W/ SMALL AMOUNTS OF BLEEDING IN PELVIC REGION. PT STATES BM TODAY, WHICH IS FIRST SINCE ADMISSION. PT AMBULATING IN/OUT OF ROOM W/ MINIMAL ASSISTANCE. CALL LIGHT WITHIN REACH, NO ACUTE NEEDS/DISTRESS.
--- NOTE | 2021-09-02 05:36 | NUR ---
GROMMET MACHINE OPERATOR SUMMARY PT A&O X4 AND COOPERATIVE. VSS. PT'S HEART RATE HAS DECREASED SINCE YESTERDAY. HE IS ABLE TO AMBULATE INDEPENDENTLY IN THE HALLWAY AND HAS HAD BM X2 THIS SHIFT. PT HAS HAD MODERATE BLEEDING FROM JIMMY DRAIN INSERTION SITE WHILE TRYING TO USE THE RESTROOM. THE JIMMY DRAIN TUBE APPEARS TO BE CLOGGED WITH THICK DRAINAGE. ATTEMPTS TO CLEAR THE TUBE WERE UNSUCCESSFUL. NO OTHER ACUTE CHANGES THIS SHIFT.
[2021-09-02 09:22] LABS: Hematocrit 25.4 % (37.0-53.0); Hemoglobin 8.5 g/dL (13.5-17.5); Mean Corpuscular HGB 32.2 pg (26.0-34.0); Mean Corpuscular HGB Conc 33.5 g/dL (31.5-36.5); Mean Corpuscular Volume 96 fL (80-100); Mean Platelet Volume 8.9 fL (9.1-12.4); NRBC ABSOLUTE 0.08 K/mm3 (0.00-0.02); NRBC Auto 0.9 /100 WBC (0.0-0.2); Platelet Count 383 K/mm3 (150-400); RDW Coefficient Variation 14.1 % (11.7-14.2); Red Blood Cell Count 2.64 M/mm3 (4.30-5.90); White Blood Cell Count 9.32 K/mm3 (4.00-11.30)
[2021-09-02 09:46] LABS: BAND PERCENT MAN 2 % (0-8); BASOPHILS ABSOLUTE MAN 0.09 K/mm3 (0.00-0.23); BASOPHILS PERCENT MAN 1 % (0-2); EOSINOPHILS ABSOLUTE MAN 0.09 K/mm3 (0.00-0.68); EOSINOPHILS PERCENT MAN 1 % (0-6); LYMPHOCYTES ABSOLUTE MAN 1.02 K/mm3 (0.84-5.20); LYMPHOCYTES PERCENT MAN 11 % (21-46); METAMYELOCYTE ABSOLUTE MAN 0.18 K/mm3 (0.00-0.00); METAMYELOCYTE PERCENT MAN 2 % (0-0); MONOCYTES ABSOLUTE MAN 0.55 K/mm3 (0.16-1.47); MONOCYTES PERCENT MAN 6 % (4-13); MYELOCYTE ABSOLUTE MAN 0.27 K/mm3 (0.00-0.00); MYELOCYTE PERCENT MAN 3 % (0-0); NEUTROPHILS ABSOLUTE MAN 7.08 K/mm3 (1.96-9.15); SEG NEUTROPHILS PERCENT MAN 74 % (41-73); TOTAL CELLS COUNTED 100
[2021-09-02 09:50] LABS: Albumin, Blood 2.6 g/dL (3.4-5.0); Albumin/Globulin Ratio 0.7 (0.8-1.8); Bilirubin, Total 0.7 mg/dL (0.1-1.0); Bun/Creatinine Ratio 15.6 (12.0-20.0); Calcium, Blood 8.6 mg/dL (8.5-10.1); Creatinine, Blood 0.64 mg/dL (0.60-1.20); Globulin, Blood 3.5 g/dL (2.2-4.0); Potassium, Blood 3.4 mmol/L (3.5-5.5); Total Protein, Blood 6.1 g/dL (6.4-8.2)
[2021-09-02] MEDS ORDERED: HYDACE10B PO (14:33)
[2021-09-02] MEDS ORDERED: LEVFLO500 PO (14:34)
--- NOTE | 2021-09-02 15:53 | NUR ---
DISCHARGE PT DISCHARGED AT 1500 WITH FAMILY VIA CAR. INDEPENDENTLY VOIDING AND MOVING AROUND ROOM. TOLERATING PO INTAKE WITH NO N/V. PATIENT STATED PAIN WITHIN ACCEPTABLE LIMITS. PATIENT/FAMILY EDUCATED ON DRESSING CHANGE AND WHEN TO REMOVE TASIA DRESSING. FAXED NEW PRESCRIPTION TO [facility], HARD COPY FOR NARCOTIC PRESCRIPTION GIVEN TO FAMILY. PT AND FAMILY IN AGREEMENT FOR DISCHARGE PLAN.
== END 2021-09-02 15:05 | disposition home or self-care (01) | DRG 854 ==
LOC: ER 11:26 → ICUW 11:27 → SURS 11:27 → ICUW 20:58 → SURS 21:47
PROVIDERS: Internal Medicine; Physician Assistant; ADMIT Surgery
PROC: 30233N1 Transfusion of Nonautologous Red Blood Cells into Peripheral Vein, Percutaneous Approach (ICD-10-PCS; 2021-08-29)
PROC: 3E03329 Introduction of Other Anti-infective into Peripheral Vein, Percutaneous Approach (ICD-10-PCS; 2021-08-29)
PROC: 0FT40ZZ Resection of Gallbladder, Open Approach (ICD-10-PCS; principal; 2021-08-29 18:30)
DX: A41.9 Sepsis, unspecified organism (principal); K80.42 Calculus of bile duct with acute cholecystitis without obstruction; I50.22 Chronic systolic (congestive) heart failure; D62 Acute posthemorrhagic anemia; K91.89 Other postprocedural complications and disorders of digestive system; K56.7 Ileus, unspecified; Z20.822 Contact with and (suspected) exposure to COVID-19; R65.20 Severe sepsis without septic shock; I48.91 Unspecified atrial fibrillation; I11.0 Hypertensive heart disease with heart failure; F17.210 Nicotine dependence, cigarettes, uncomplicated; Z86.718 Personal history of other venous thrombosis and embolism; Z90.89 Acquired absence of other organs; Z98.890 Other specified postprocedural states; Z79.899 Other long term (current) drug therapy; Z79.02 Long term (current) use of antithrombotics/antiplatelets
CPT/HCPCS: 36415; 36430; 74176; 74177; 74181; 80053; 81001; 83605; 83690; 85014; 85018; 85025; 86850; 86900; 86901; 86920; 87040; 87070; 87075; 87076; 87205; 88304; 93005; 93010; 94760; 96365-59; 99285-25; A9270; J1100; J1650; J1885; J2250; J2405; J2543; J2704; J2710; J3010; J3370; J7030; J7040; J7050; J7060; J7120; J7168; P9016; Q9967